=== PATIENT | female | born 1990 | race American Indian/Alaskan Native ===

== ENCOUNTER 2018-05-14 18:03 | Emergency (ER) | payer BC ==
[~2018-05-14] VITALS: Ht 175.3 cm; Wt 263.1 kg
[~2018-05-14 18:03] MED LIST: ADDERALL 20 MG20 MG; DOXYCYCLINE150 MG; VALACYCLOVIR500 MG
== END 2018-05-14 21:17 | disposition home or self-care (01) ==
LOC: ER 18:03
DX: H66.91 Otitis media, unspecified, right ear (principal)